=== PATIENT | male | born 1980 | race Caucasian/White ===

== ENCOUNTER 2021-07-17 22:26 | Emergency (ER) | payer OTHER ==
[~2021-07-17] VITALS: Ht 188 cm; Wt 113.4 kg
[2021-07-17 22:31] VITALS: BP 159/95
[2021-07-17] MEDS ORDERED: DESYREL150 MG PO (22:35)
[2021-07-17] MEDS ORDERED: ATIVAN0.5 M1 PO (22:36)
== END 2021-07-17 23:28 | disposition home or self-care (01) ==
LOC: ER 22:26
DX: S00.83XA Contusion of other part of head, initial encounter (principal); Z98.890 Other specified postprocedural states; Z79.899 Other long term (current) drug therapy; Z88.5 Allergy status to narcotic agent; Y04.2XXA Assault by strike against or bumped into by another person, initial encounter; Y93.89 Activity, other specified; Y92.89 Other specified places as the place of occurrence of the external cause; Y99.8 Other external cause status